=== PATIENT | male | born 1990 | race Two or more races ===

== ENCOUNTER 2024-06-18 16:17 | Emergency (ER) | payer SELFPAY ==
[~2024-06-18] VITALS: Ht 175.3 cm; Wt 79.4 kg
[2024-06-18 16:33] VITALS: BP 141/75; TEMP 99.5; O2SAT 100
== END 2024-06-18 17:06 | disposition home or self-care (01) ==
LOC: ER 16:27
DX: S01.511A Laceration without foreign body of lip, initial encounter (principal); J45.909 Unspecified asthma, uncomplicated; W50.0XXA Accidental hit or strike by another person, initial encounter; Y93.67 Activity, basketball; Y92.39 Other specified sports and athletic area as the place of occurrence of the external cause; Y99.8 Other external cause status